=== PATIENT | female | born 1975 | race Caucasian/White ===

== ENCOUNTER 2020-11-01 15:14 | Outpatient (CLI) | payer BC ==
--- NOTE | 2020-11-01 15:56 | RAD ---
Exam: Chest one view HISTORY:Fatigue. Hypertension. Comparison: None FINDINGS: Cardiac silhouette: Normal Aorta: Unremarkable Pulmonary vessels: Normal Costophrenic angles: Clear LUNGS: Scattered interstitial and alveolar opacities in the right lower lobe. She'll scattered inters titial opacities identified in the remaining lung parenchyma Pneumothorax: None Osseous abnormalities: None IMPRESSION: Lung parenchymal opacities as detailed above. Further evaluation with a chest CT is recom mended.
--- NOTE | 2020-11-01 15:59 | RAD ---
Exam: XR Foot Lt 3 View STANDARD HISTORY: Calcaneal spur. Plantar and posterior heel pain. Patient also complains of pain in the tarsal bones o f the first through third digits. COMPARISON: None FINDINGS: No acute fracture, dislocation, or other acute osseous abnormality is identified. Posterior and plantar calcaneal enthesophytes are identified. IMPRESSION: No acute osseous abnormality is identified.
--- NOTE | 2020-11-01 16:00 | RAD ---
RADIOGRAPH LUMBAR SPINE 2 VIEWS: DATE: 11/01/2020 HISTORY: 45-year-old female with low back pain and lumbar radiculopathy. COMPARISON: None FINDINGS: Low image resolution because of body habitus. Standing AP and lateral views. 5 lumbar-type vertebrae. Mild right-lateral curvature of approximately 13 degrees, with apex at L3-4. Vertebral body heights are maintained. No spondylolisthesis. Moderate disc space narrowing at L4-5. IMPRESSION: 1) discogenic degenerative changes at L4-5. 2) lateral curvature.
--- NOTE | 2020-11-01 16:01 | RAD ---
Right foot 3 views: 11/01/2020 COMPARISON: None HISTORY: Posterior heel pain, calcaneal spur FINDINGS: Lateral exam demonstrates enthesophyte formation at the origin of the plantar aponeurosis a nd the insertion of the Achilles tendon. There is multilevel joint space narrowing and dorsal osteophyte formation involving the midfoot. There is no acute fracture or evidence of dislocation see n IMPRESSION: Calcaneal enthesophyte formation. No acute fracture or dislocation.
== END 2020-11-01 15:15 | disposition home or self-care (01) ==
LOC: BICRAD 15:14
PROVIDERS: ATTEND Family Medicine
DX: M54.5 Low back pain (principal); I10 Essential (primary) hypertension; R63.5 Abnormal weight gain; M77.32 Calcaneal spur, left foot; M77.31 Calcaneal spur, right foot; M51.36 Other intervertebral disc degeneration, lumbar region; R91.8 Other nonspecific abnormal finding of lung field
CPT/HCPCS: 71045; 72100

== ENCOUNTER 2020-11-10 10:22 | Outpatient (CLI) | payer BC | END 2020-11-10 10:23 | disposition home or self-care (01) | LOC: BICULT 10:22 | PROVIDERS: ATTEND Family Medicine | DX: R63.3 Feeding difficulties (principal) | CPT/HCPCS: 76536 ==

== ENCOUNTER 2020-11-10 10:31 | Outpatient (CLI) | payer BC | END 2020-11-10 10:32 | disposition home or self-care (01) | LOC: BICMAMMO 10:31 | PROVIDERS: ATTEND Family Medicine | DX: Z12.31 Encounter for screening mammogram for malignant neoplasm of breast (principal) | CPT/HCPCS: 77063; 77067 ==

== ENCOUNTER 2020-12-08 12:32 | Outpatient (CLI) | payer BC ==
[~2020-12-08 12:32] MED LIST: Iopamidol-370 76% 500 ML 1 ML ONE
== END 2020-12-08 12:33 | disposition home or self-care (01) ==
LOC: BICCT 12:32
PROVIDERS: ATTEND Family Medicine
DX: R91.8 Other nonspecific abnormal finding of lung field (principal)
CPT/HCPCS: 71260; 82565; Q9967

== ENCOUNTER 2021-08-18 10:50 | Outpatient (CLI) | payer BC | END 2021-08-18 10:51 | disposition home or self-care (01) | LOC: BICRAD 10:50 | PROVIDERS: ATTEND Family Medicine | DX: M25.561 Pain in right knee (principal); M25.552 Pain in left hip; M17.11 Unilateral primary osteoarthritis, right knee | CPT/HCPCS: 72170 ==

== ENCOUNTER 2022-07-20 11:32 | Outpatient (CLI) | payer BC | END 2022-07-20 11:33 | disposition home or self-care (01) | LOC: BICRAD 11:32 | PROVIDERS: ATTEND Family Medicine | DX: M25.512 Pain in left shoulder (principal); M76.899 Other specified enthesopathies of unspecified lower limb, excluding foot; M17.11 Unilateral primary osteoarthritis, right knee ==

== ENCOUNTER 2022-10-30 11:20 | Outpatient (CLI) | payer OTHER | END 2022-10-30 11:21 | disposition home or self-care (01) | LOC: BICRAD 11:20 | PROVIDERS: ATTEND Nurse Practitioner Adult Health | DX: M25.562 Pain in left knee (principal) ==

== ENCOUNTER 2022-12-21 14:29 | Outpatient (CLI) | payer OTHER | END 2022-12-21 14:30 | disposition home or self-care (01) | LOC: BICRAD 14:29 | DX: L40.52 Psoriatic arthritis mutilans (principal); M79.641 Pain in right hand; M79.642 Pain in left hand ==